=== PATIENT | male | born 1975 | race Two or more races ===

== ENCOUNTER 2018-04-30 01:09 | Emergency (ER) | payer OTHER ==
[~2018-04-30] VITALS: Ht 170.2 cm; Wt 81.6 kg
[2018-04-30 01:22] VITALS: BP 122/90
== END 2018-04-30 01:30 | disposition left against medical advice (07) ==
LOC: ER 01:11
DX: M54.2 Cervicalgia (principal); Z53.21 Procedure and treatment not carried out due to patient leaving prior to being seen by health care provider